=== PATIENT | female | born 1955 | race Caucasian/White ===

== ENCOUNTER → 2022-05-04 | Outpatient (CLI) | payer BC ==
[~2022-05-04] MED LIST: ALLO300 PO; ATOR20 PO; Amlodipine Bes2.5 MG PO; Aspir 8181 MG PO; GLIM4 PO; HYDCHL12.5 PO; JARDIANCE10 MG PO; LEVSOD100 PO; LOSARTAN POTAS100 M1 PO; METFORMIN ER1000 M1 PO
[2022-05-04 09:45] LABS: BASOPHILS ABSOLUTE AUTO 0.04 K/mm3 (0.00-0.23); BASOPHILS PERCENT AUTO 1 % (0-2); EOSINOPHILS ABSOLUTE AUTO 0.19 K/mm3 (0.00-0.68); EOSINOPHILS PERCENT AUTO 3 % (0-6); Hematocrit 42.5 % (33.0-51.0); Hemoglobin 14.2 g/dL (11.5-16.0); IMMATURE GRAN ABSOLUTE AUTO 0.02 K/mm3 (0.00-0.10); IMMATURE GRAN PERCENT AUTO 0 % (0-1); LYMPHOCYTES ABSOLUTE AUTO 1.64 K/mm3 (0.84-5.20); LYMPHOCYTES PERCENT AUTO 21 % (21-46); MONOCYTES ABSOLUTE AUTO 0.53 K/mm3 (0.16-1.47); MONOCYTES PERCENT AUTO 7 % (4-13); Mean Corpuscular HGB 34.5 pg (26.0-34.0); Mean Corpuscular HGB Conc 33.4 g/dL (31.5-36.5); Mean Corpuscular Volume 103 fL (80-100); Mean Platelet Volume 9.3 fL (9.1-12.4); NEUTROPHILS ABSOLUTE AUTO 5.26 K/mm3 (1.96-9.15); NEUTROPHILS PERCENT AUTO 68 % (41-73); Platelet Count 230 K/mm3 (150-400); RDW Coefficient Variation 12.7 % (11.7-14.2); Red Blood Cell Count 4.12 M/mm3 (3.80-5.20); White Blood Cell Count 7.68 K/mm3 (4.00-11.30)
[2022-05-04 09:57] LABS: Albumin, Blood 3.9 g/dL (3.4-5.0); Albumin/Globulin Ratio 1.1 (0.8-1.8); Bilirubin, Total 0.5 mg/dL (0.1-1.0); Bun/Creatinine Ratio 29.9 (12.0-20.0); Calcium, Blood 9.5 mg/dL (8.5-10.1); Creatinine, Blood 0.77 mg/dL (0.40-1.00); Globulin, Blood 3.7 g/dL (2.2-4.0); Potassium, Blood 4.2 mmol/L (3.5-5.5); Total Protein, Blood 7.6 g/dL (6.4-8.2)
== END | disposition home or self-care (01) ==
LOC: LAB SHORT 09:41
PROVIDERS: Chiropractor
DX: R10.12 Left upper quadrant pain (principal); Z86.2 Personal history of diseases of the blood and blood-forming organs and certain disorders involving the immune mechanism
CPT/HCPCS: 80053; 82607; 82746; 83690; 84484; 85025

== ENCOUNTER → 2025-08-08 | Outpatient (CLI) | payer MEDICARE ==
[~2025-08-08] MED LIST changes: +LOSA50 PO
[2025-08-08 14:47] LABS: Creatinine, Urine Random 134.0 mg/dL (27.00-270.00); Microalb/Creat Ratio UR, Rand 117.164 mg/g (0.000-30.000); Microalbumin, Random Urine 157.0 mg/L (0.000-20.000)
== END | disposition home or self-care (01) ==
LOC: LAB SHORT 07:38 → LAB 07:38
PROVIDERS: Internal Medicine Endocrinology, Diabetes & Metabolism
DX: E11.69 Type 2 diabetes mellitus with other specified complication (principal)
CPT/HCPCS: 82043; 82570